=== PATIENT | male | born 1975 | race Caucasian/White ===

== ENCOUNTER 2018-04-24 01:18 | Inpatient (IN) | payer MEDICAID ==
[2018-04-24 01:19] VITALS: BMI 21.4
--- NOTE | 2018-04-24 02:37 | ED PDOC ---
HPI: General Adult Chief Complaint (Provider): rectal pain History Per: Patient History/Exam Limitations: no limitations Onset/Duration Of Symptoms: Days (1 week) Current Symptoms Are (Timing): Still Present Additional Complaint(s): 43 y/o male presents for evaluation of rectal pain x 1 week, worsening in the last few days. Patient states he was told by his primary doctor he had a hemorrhoid and was prescribed hydrocortisone cream and naproxen. Patient then came to the ED 4 days ago for same and was prescribed Percocet, colace, and lidocaine jelly. Patient reports no improvement of pain, and presents to ED [facility] for [facility]. Associated intermittent chills, constipation. Denies fever, nausea/vomiting, abdominal pain, urinary symptoms. <Mallroy New - Last Filed: 04/24/18 05:52> <Jose Carlos Frederick - Last Filed: 04/26/18 21:04> Time Seen by Provider: 04/24/18 02:20 Chief Complaint (Nursing): GI Problem Supervising Attending Note - Attestation: I have personally seen and examined this patient.: Yes I have fully participated in the care of the patient.: Yes I have reviewed all pertinent clinical information, including history, physical exam and plan: Yes <Jose Carlos Frederick - Last Filed: 04/26/18 21:04> Past Medical History Reviewed: Historical Data, Nursing Documentation, Vital Signs Vital Signs: Last Vital Signs Temp 98.4 F 04/24/18 01:52 Pulse 102 H 04/24/18 01:52 Resp 18 04/24/18 01:52 BP 119/76 04/24/18 01:52 Pulse Ox 99 04/24/18 01:52 - Medical History PMH: Anemia - Surgical History Surgical History: No Surg Hx - Family History Family History: States: No Known Family Hx - Immunization History Hx Tetanus Toxoid Vaccination: No Hx Influenza Vaccination: No Hx Pneumococcal Vaccination: No <Mallory New - Last Filed: 04/24/18 05:52> Vital Signs: Last Vital Signs Temp 97.5 F L 04/26/18 15:59 Pulse 55 L 04/26/18 15:59 Resp 18 04/26/18 15:59 BP 115/69 04/26/18 15:59 Pulse Ox 100 04/26/18 15:59 <Jose Carlos Frederick - Last Filed: 04/26/18 21:04> - Home Medications Home Medications: Ambulatory Orders Medication Instructions Recorded RX: No Known Home Med 04/24/18 - Allergies Allergies/Adverse Reactions: Allergies Allergy/AdvReac Type Severity Reaction Status Date / Time No Known Allergies Allergy Verified 04/24/18 01:52 Review of Systems ROS Statement: Except As Marked, All Systems Reviewed And Found Negative Gastrointestinal: Positive for: Rectal Pain <Mallory New - Last Filed: 04/24/18 05:52> Physical Exam - Reviewed Nursing Documentation Reviewed: Yes Vital Signs Reviewed: Yes - Physical Exam Appears: Positive for: Well, Non-toxic, No Acute Distress Head Exam: Positive for: ATRAUMATIC, NORMAL INSPECTION, NORMOCEPHALIC Skin: Positive for: Normal Color Eye Exam: Positive for: Normal appearance ENT: Positive for: Normal ENT Inspection Cardiovascular/Chest: Positive for: Regular Rate, Rhythm Respiratory: Positive for: Normal Breath Sounds Gastrointestinal/Abdominal: Positive for: Normal Exam Rectal: Positive for: Hemorrhoids (6:00 position), Other (+ large fluctuant erythematous mass right laverne-rectal area, tender to palpate. 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 Infectious and inflammatory etiologies are considered. Consider consultation with GI service and follow up with endoscopy and colonoscopy Call placed to [facility] by Dr. Frederick for clarification on CT read Patient evaluated by Dr. Diaz, surgical services manager on-call; will admit and plan for OR for thorough I&D. Advised NPO, abx IV zosyn ordered. IVF ordered <Mallory New - Last Filed: 04/24/18 05:52> - Laboratory Results Result Diagrams: 04/26/18 07:51 04/24/18 02:50 <Jose Carlos Frederick - Last Filed: 04/26/18 21:04> Disposition - Patient ED Disposition Is Patient to be Admitted: Yes - Disposition Disposition Time: 05:55 <Mallory New - Last Filed: 04/24/18 05:52> <Jose Carlos Frederick - Last Filed: 04/26/18 21:04> - Clinical Impression Clinical Impression: Perirectal abscess - Disposition Condition: STABLE
[2018-04-24 02:58] LABS: BASO % 0.2 % (0.0-2.0); EOS % 0.2 % (0.0-4.0); HEMOGLOBIN 13.3 g/dL (12.0-18.0); LYMPH # 1.4 K/uL (1.0-4.3); LYMPH % 6.4 % (20.0-40.0); MEAN CELL VOLUME 81.1 fl (80.0-94.0); MEAN CORPUSCULAR HEMOGLOBIN 27.5 pg (27.0-31.0); MEAN CORPUSCULAR HGB CONC 33.8 g/dL (33.0-37.0); MEAN PLATELET VOLUME 7.7 fl (7.2-11.7); MONO # 2.3 K/uL (0.0-0.8); MONO % 10.6 % (0.0-10.0); NEUT # 17.5 K/uL (1.8-7.0); NEUT % 82.6 % (50.0-75.0); PLATELET COUNT 301 K/uL (130-400); RBC 4.84 Mil/uL (4.40-5.90); RED CELL DISTRIBUTION WIDTH 17.7 % (11.5-14.5); WHITE BLOOD COUNT 21.2 K/uL (4.8-10.8)
[2018-04-24 03:08] LABS: ALBUMIN 4.4 g/dL (3.5-5.0); ALT/SGPT 39 U/L (21-72); AST/SGOT 33 U/L (17-59); BLOOD UREA NITROGEN 15 mg/dl (9-20); CALCIUM 9.5 mg/dL (8.4-10.2); GFR NON-AFRICAN AMERICAN > 60
[2018-04-24] MEDS ORDERED: Iohexol 300 100 ML IJ ONE (03:11)
[2018-04-24] MEDS ORDERED: Sodium Chloride 0.9% 50 ML IV ONE (03:12)
[2018-04-24 03:56] LABS: BANDS 4 % (0-2); LYMPHOCYTE 6 % (20-50); MONOCYTE 5 % (0-10); NEUTROPHIL 83 % (42-75); PLATELET ESTIMATE NORMAL (NORMAL); REACTIVE LYMPHOCYTES 2 % (0-0); TOTAL CELLS COUNTED 100
[2018-04-24 03:57] LABS: ANISOCYTOSIS SLIGHT; LARGE PLATELETS PRESENT; OVALOCYTES SLIGHT
[2018-04-24 04:44] LABS: URINE BILIRUBIN NEGATIVE (NEGATIVE); URINE BLOOD SMALL (NEGATIVE); URINE CLARITY SLIGHTY-CLOUDY (Clear); URINE COLOR YELLOW (YELLOW); URINE GLUCOSE (UA) NEG (Normal); URINE LEUKOCYTE ESTERASE NEG Leu/uL (Negative); URINE PROTEIN 30 mg/dL (NEGATIVE); URINE UROBILINOGEN 0.2-1.0 mg/dL (0.2-1.0)
[2018-04-24] MEDS ORDERED: Piperacillin/Tazobact 3.375 GM in Sodium Chloride 0.9% 100 ML IVPB STA (05:49)
[2018-04-24] MEDS ORDERED: Sodium Chloride 0.9% 1,000 ML IV SCH (06:00)
[2018-04-24] MEDS ORDERED: Piperacillin/Tazobact 3.375 gm Inj IVPB ONE (06:03)
--- NOTE | 2018-04-24 06:05 | CP.PCM.HP ---
History of Present Illness - History of Present Illness History of Present Illness: General Surgery H&P CC: Perianal pain HPI: 43M presents complaining of rectal pain and no bowel movement x 6 days, pain worsening in the last few days. Initially, his PMDtold him he had hemorrhoids and was prescribed hydrocortisone cream and naproxen. Patient then came to the ED on the for the same pain and was prescribed Percocet, colace, and lidocaine jelly. Pain continued to worsen since that ED visit. + subjective fever, night sweats, intermittent chills, constipation. Denies rectal drainage, nausea/vomiting, chest pain, SOB, abdominal pain, urinary symptoms. Never had colonoscopy. PMH: hx of rectal bleeding x 20y PSH: Knee surgery FH: noncontributory, mother has "Intestine problems" SH: Occasional Tobacco, EtOH, and THC use All: NKDA Meds: No daily meds Present on Admission - Present on Admission Any Indicators Present on Admission: No Review of Systems - Review of Systems All systems: reviewed and no additional remarkable complaints except (as per HPI) Past Patient History - Past Social History Smoking Status: Never Smoked - HEMATOLOGICAL/ONCOLOGICAL Hx Anemia: Yes - GASTROINTESTINAL Hx Constipation: Yes - PSYCHIATRIC Hx Substance Use: No - SURGICAL HISTORY Hx Surgeries: Yes Hx Orthopedic Surgery: Yes - ANESTHESIA Hx Anesthesia: Yes Meds Allergies/Adverse Reactions: Allergies Allergy/AdvReac Type Severity Reaction Status Date / Time No Known Allergies Allergy Verified 04/24/18 01:52 Physical Exam - Constitutional Appears: Non-toxic, No Acute Distress - Head Exam Head Exam: ATRAUMATIC, NORMOCEPHALIC - Eye Exam Eye Exam: EOMI. absent: Scleral icterus - ENT Exam ENT Exam: Mucous Membranes Moist Additional comments: trachea midline - Neck Exam Neck exam: Positive for: Full Rom. Negative for: Tenderness - Respiratory Exam Respiratory Exam: NORMAL BREATHING PATTERN. absent: Respiratory Distress - Cardiovascular Exam Cardiovascular Exam: Tachycardia (mild), +S1, +S2 - GI/Abdominal Exam GI & Abdominal Exam: Soft. absent: Distended, Tenderness - Rectal Exam Rectal Exam: Deferred (RYAN refused), Hemorrhoids Additional comments: multiple areas of extremely tender perianal erythema, edema, and fluctuance B/L, no purulent drainage seen with this limited exam. Areas up to 7cm away from anus Appear to be hemorrhoids present as well No gross blood seen - Extremities Exam Extremities exam: Positive for: pedal pulses present. Negative for: calf ten derness, pedal edema - Back Exam Back exam: absent: CVA tenderness (L), CVA tenderness (R) - Neurological Exam Neurological exam: Alert, Oriented x3 - Skin Skin Exam: Dry, Warm Results - Vital Signs Recent Vital Signs: Last Vital Signs Temp 98.4 F 04/24/18 01:52 Pulse 102 H 04/24/18 01:52 Resp 18 04/24/18 01:52 BP 119/76 04/24/18 01:52 Pulse Ox 99 04/24/18 05:56 - Labs Result Diagrams: 04/24/18 02:50 04/24/18 02:50 Labs: Laboratory Results - last 24 hr 04/24/18 04/24/18 04/24/18 02:50 02:50 02:50 WBC 21.2 H RBC 4.84 Hgb 13.3 Hct 39.3 MCV 81.1 MCH 27.5 MCHC 33.8 RDW 17.7 H Plt Count 301 MPV 7.7 Neut % (Auto) 82.6 H Lymph % (Auto) 6.4 L Roberts % (Auto) 10.6 H Eos % (Auto) 0.2 Baso % (Auto) 0.2 Neut # (Auto) 17.5 H Lymph # (Auto) 1.4 Roberts # (Auto) 2.3 H Eos # (Auto) 0.0 Baso # (Auto) 0.0 Neutrophils % (Manual) 83 H Band Neutrophils % 4 H Lymphocytes % (Manual) 6 L Reactive Lymphs % 2 H Monocytes % (Manual) 5 Platelet Estimate Normal Large Platelets Present Anisocytosis (manual) Slight Ovalocytes Slight Sodium 136 Potassium 4.4 Chloride 98 Carbon Dioxide 26 Anion Gap 16 BUN 15 Creatinine 0.9 Est GFR ( Amer) > 60 Est GFR (Non-Af Amer) > 60 Random Glucose 110 Lactic Acid 1.3 Calcium 9.5 Total Bilirubin 0.5 AST 33 ALT 39 Alkaline Phosphatase 106 Total Protein 8.7 H Albumin 4.4 Globulin 4.3 H Albumin/Globulin Ratio 1.0 Urine Color Urine Clarity Urine pH Ur Specific [place] Urine Protein Urine Glucose (UA) Urine Ketones Urine Blood Urine Nitrate Urine Bilirubin Urine Urobilinogen Ur Leukocyte Esterase Urine RBC (Auto) Urine Microscopic WBC 04/24/18 04:39 WBC RBC Hgb Hct MCV MCH MCHC RDW Plt Count MPV Neut % (Auto) Lymph % (Auto) Roberts % (Auto) Eos % (Auto) Baso % (Auto) Neut # (Auto) Lymph # (Auto) Roberts # (Auto) Eos # (Auto) Baso # (Auto) Neutrophils % (Manual) Band Neutrophils % Lymphocytes % (Manual) Reactive Lymphs % Monocytes % (Manual) Platelet Estimate Large Platelets Anisocytosis (manual) Ovalocytes Sodium Potassium Chloride Carbon Dioxide Anion Gap BUN Creatinine Est GFR ( Amer) Est GFR (Non-Af Amer) Random Glucose Lactic Acid Calcium Total Bilirubin AST ALT Alkaline Phosphatase Total Protein Albumin Globulin Albumin/Globulin Ratio Urine Color Yellow Urine Clarity Slighty-cloudy Urine pH 6.0 Ur Specific [place] 1.030 Urine Protein 30 Urine Glucose (UA) Neg Urine Ketones Trace Urine Blood Small Urine Nitrate Negative Urine Bilirubin Negative Urine Urobilinogen 0.2-1.0 Ur Leukocyte Esterase Neg Urine RBC (Auto) 2 Urine Microscopic WBC 2 - Imaging and Cardiology CT scan - pelvis Status: Image reviewed by me, Report reviewed by me Assessment & Plan - Assessment and Plan (Free Text) Assessment: 43M with extensive perirectal abscess Plan: F/U official CT read NPO IVF Analgesia Zofran Zosyn Plan for OR today Will D/W Dr. Ruslan Diaz PGY4
[2018-04-24 06:51] LABS: INR 1.5; PROTHROMBIN TIME 16.6 Seconds (9.8-13.1)
[2018-04-24 06:54] LABS: PARTIAL THROMBOPLASTIN TIME 68.8 Seconds (25.6-37.1)
[2018-04-24] MEDS: Piperacillin/Tazobact 3.375 GM in Sodium Chloride 0.9% 100 ML IVPB SCH ×3 (09:13→22:32)
[2018-04-24] MEDS ORDERED: Propofol 10 mg/ml Inj (20 ML) ONE (09:29)
[2018-04-24] MEDS ORDERED: Midazolam 2 MG/2 ML VIAL ONE (09:31)
--- NOTE | 2018-04-24 10:26 | CT ---
Date of service: 04/24/2018 PROCEDURE: CT Abdomen and Pelvis with contrast HISTORY: rectal pain COMPARISON: None. TECHNIQUE: Contrast dose: 90 mL Omnipaque 300 Radiation dose: Total exam DLP = 284.4 mGy-cm. This CT exam was performed using one or more of the following dose reduction techniques: Automated exposure control, adjustment of the mA and/or kV according to patient size, and/or use of iterative reconstruction technique. FINDINGS: LOWER THORAX: Unremarkable. LIVER: Unremarkable. No gross lesion or ductal dilatation. GALLBLADDER AND BILE DUCTS: Unremarkable. PANCREAS: Unremarkable. No gross lesion or ductal dilatation. SPLEEN: Unremarkable. ADRENALS: Unremarkable. No mass. KIDNEYS AND URETERS: Unremarkable. No hydronephrosis. No solid mass. VASCULATURE: Unremarkable. No aortic aneurysm. BOWEL: Perirectal abscess measuring 5.7 x 7.0 cm with reactive mild rectal wall thickening. No obstruction. No gross mural thickening. APPENDIX: Normal appendix. PERITONEUM: Unremarkable. No free fluid. No free air. LYMPH NODES: Unremarkable. No enlarged lymph nodes. BLADDER: Unremarkable. REPRODUCTIVE: Unremarkable. BONES: No acute fracture. OTHER FINDINGS: None. IMPRESSION: Perirectal abscess measuring 7.0 x 5.7 cm with reactive mild rectal wall thickening. The findings are discordant with preliminary report provided by the overnight tele radiology service. At the time of this dictation, per the electronic medical record, the surgical team already had high suspicion of perirectal abscess and has the patient is scheduled for a procedure in the operating room today.
[2018-04-24] MEDS ORDERED: Dexamethasone 4 mg/1 ml ONE (10:32)
[2018-04-24] MEDS ORDERED: Lactated Ringer's 1,000 ML IV ONE (10:45)
--- NOTE | 2018-04-24 11:05 | PCM.SURG1 ---
Surgeon's Initial Post Op Note - Surgeon's Notes Surgeon: Dr. Mercer Learning Analyst: Ginger PGY2 Type of Anesthesia: General LMA Anesthesia Administered By: Dr. Chapito Santiago Pre-Operative Diagnosis: Nasima-rectal abscess Operative Findings: Nasima-rectal abscess Post-Operative Diagnosis: Nasima-rectal abscess Operation Performed: Incision & Drainage of Nasima-rectal abscess Specimen/Specimens Removed: wound culture Estimated Blood Loss: EBL {In ML}: 10 Blood Products Given: N/A Drains Used: [place] (x 2 ) Post-Op Condition: Good Date of Surgery/Procedure: 04/24/18 Time of Surgery/Procedure: 11:05
[2018-04-24] MEDS ORDERED: DiphenhydrAMINE 50 mg/ml Inj IVP PRN (11:08)
[2018-04-24] MEDS: HYDROmorphone 0.5 mg/0.5 ml ISec IVP PRN ×2 (11:22→11:38)
[2018-04-24] MEDS: Lactated Ringer's 1,000 ML IV SCH (13:47)
--- NOTE | 2018-04-24 14:36 | CARD ---
APPROVED REPORT Date of service: 04/24/2018 EKG Measurement Heart [id number] <Conclusion> Normal sinus rhythm Normal ECG
--- NOTE | 2018-04-24 21:53 | OP ---
PROCEDURE DATE: 04/24/2018 PREOPERATIVE DIAGNOSIS: Left perirectal abscess. POSTOPERATIVE DIAGNOSIS: Left perirectal abscess. OPERATIVE FINDINGS: Perirectal abscess. OPERATION PERFORMED: Incision and drainage of left perirectal abscess. SURGEON: Redd Mercer MD HANDWRITING EXPERT: Gerardo Miles, PGY-2. ANESTHESIOLOGIST: Chapito Santiago MD ANESTHESIA: General LMA. SPECIMEN: Wound culture. ESTIMATED BLOOD LOSS: 10 mL. DRAINS: Two [place]'s. COMPLICATIONS: None. DESCRIPTION: The patient was taken to the OR and placed in lithotomy position on the operating table. General LMA anesthesia was administered. The patient was prepped and draped in the usual fashion. The area of the left gluteal was exposed and a rectal exam was performed. There was no bulging or papillae felt in the left wall of the rectum. Skin tags were noted in the superior and inferior portion of the anus. A bulge of the left medial gluteal region and right inferior medial gluteal region were present. An incision was made with a #11 blade on the left gluteal region where the fluctuation was the greatest. A Tameka was then used to explore the room and open up any pockets of pus. Approximately 30 mL of pus was drained from that left side. Undermining was noted superiorly, inferiorly and medially. The medial undermining crossed over the midline to the right side connecting the two areas of fluctuation. Pus was expressed from the right medial gluteal area as well. A [place] drain was inserted in the original incision to the left and crossed over the midline and then another incision was made with a #11 blade to make a cut in the skin and the Lauryn was used as a draining seton. A second [place] drain was placed on the left side from the original left medial gluteal incision and directed inferiorly and another gina was made in the skin with #11 blade and a [place] drain was used as a draining seton as well there. The two Lauryn drains were secured with a single silk suture. Irrigation was used with bulb syringe. The cavities were explored again. A 4 x 4 and abdominal pad dressing was applied to the surgical site. Blood loss was approximately 10 mL. There were no complications. The patient tolerated the procedure well and was transferred to the PACU in stable condition. All counts were correct and confirmed by nursing. Gerardo Miles DO Redd Mercer MD [facility] # [id number] TESS
[2018-04-25] MEDS: Lactated Ringer's 1,000 ML IV SCH ×2 (04:41→20:24)
[2018-04-25] MEDS: Piperacillin/Tazobact 3.375 GM in Sodium Chloride 0.9% 100 ML IVPB SCH ×5 (04:42→21:39)
[2018-04-25 06:40] LABS: BASO % 0.1 % (0.0-2.0); HEMOGLOBIN 11.8 g/dL (12.0-18.0); LYMPH # 0.6 K/uL (1.0-4.3); LYMPH % 2.9 % (20.0-40.0); MEAN CELL VOLUME 82.3 fl (80.0-94.0); MEAN CORPUSCULAR HEMOGLOBIN 27.1 pg (27.0-31.0); MEAN PLATELET VOLUME 7.9 fl (7.2-11.7); MONO # 0.7 K/uL (0.0-0.8); MONO % 3.3 % (0.0-10.0); NEUT % 93.7 % (50.0-75.0); PLATELET COUNT 270 K/uL (130-400); RBC 4.33 Mil/uL (4.40-5.90); WHITE BLOOD COUNT 21.3 K/uL (4.8-10.8)
[2018-04-25 09:03] LABS: BANDS 6 % (0-2); LYMPHOCYTE 5 % (20-50); METAMYELOCYTE 1 % (0-0); MONOCYTE 3 % (0-10); NEUTROPHIL 85 % (42-75); TOTAL CELLS COUNTED 100
[2018-04-25 09:04] LABS: LARGE PLATELETS PRESENT; OVALOCYTES SLIGHT; PLATELET ESTIMATE NORMAL (NORMAL)
--- NOTE | 2018-04-25 09:42 | CP.PCM.PN ---
Subjective - Date & Time of Evaluation Date of Evaluation: 04/25/18 Time of Evaluation: 07:20 - Subjective Subjective: General Surgery Pt Seen and examined. No issues overnight. Pain improving, afebrile. Complaining of R shoulder pain, has been repetitively struck against furniture while moving over the last 6 days, says he feels like it is grinding. Objective - Vital Signs/Intake and Output Vital Signs (last 24 hours): Temp Pulse Resp BP Pulse Ox 98.2 F 75 20 103/63 99 04/25/18 08:27 04/25/18 08:27 04/25/18 08:27 04/25/18 08:27 04/25/18 08:27 - Medications Medications: Current Medications Acetaminophen (Tylenol 325mg Tab) 650 mg PO Q6 PRN PRN Reason: Fever >100.4 F Piperacillin Sod/Tazobactam (Sod 3.375 gm/ Sodium Chloride) 100 mls @ 100 mls/hr IVPB Q6 BRI; Protocol Last Admin: 04/25/18 04:42 Dose: 100 mls/hr Vancomycin HCl 1 gm/ Sodium (Chloride) 250 mls @ 166.667 mls/hr IVPB Q12H BRI; Protocol Last Admin: 04/24/18 23:52 Dose: 166.667 mls/hr Lactated Ringer's (Lactated Ringer's) 1,000 mls @ 125 mls/hr IV .Q8H BRI Last Admin: 04/25/18 04:41 Dose: Not Given Ketorolac Tromethamine (Toradol) 30 mg IVP Q6 PRN PRN Reason: Pain, moderate (4-7) Last Admin: 04/25/18 09:14 Dose: 30 mg Meperidine HCl (Demerol) 12.5 mg IVP Q5M PRN PRN Reason: Shivering/Rigor Morphine Sulfate (Morphine) 4 mg IVP Q4 PRN PRN Reason: Pain, moderate (4-7) Ondansetron HCl (Zofran Inj) 4 mg IVP Q4 PRN PRN Reason: Nausea/Vomiting Oxycodone/Acetaminophen (Percocet 5/325 Mg Tab) 1 tab PO Q4 PRN PRN Reason: Pain, moderate (4-7) Stop: 04/27/18 11:10 - Labs Labs: 04/25/18 06:05 04/24/18 02:50 PT 16.6 Seconds (9.8-13.1) H 04/24/18 06:20 INR 1.5 04/24/18 06:20 APTT 68.8 Seconds (25.6-37.1) H 04/24/18 06:20 - Constitutional Appears: Non-toxic, No Acute Distress - Head Exam Head Exam: ATRAUMATIC, NORMOCEPHALIC - Eye Exam Eye Exam: EOMI. absent: Scleral icterus - Respiratory Exam Respiratory Exam: NORMAL BREATHING PATTERN. absent: Respiratory Distress - Cardiovascular Exam Cardiovascular Exam: RRR, +S1, +S2 - GI/Abdominal Exam GI & Abdominal Exam: Soft. absent: Distended, Tenderness - Rectal Exam Additional comments: dressing with bloody staining, isiah drains in place - Extremities Exam Extremities Exam: absent: Calf Tenderness Additional comments: pain with movement of R shoulder - Neurological Exam Neurological Exam: Alert, Awake, Oriented x3 - Skin Skin Exam: Dry, Warm Assessment and Plan - Assessment and Plan (Free Text) Assessment: 43M S/P Incision & Drainage of Nasima-rectal abscess POD #1 Plan: Continue Abx Change Dressing PRN Shoulder XR ordered for eval Monitor Swelling D/W Dr. Ruslan Diaz PGY4
--- NOTE | 2018-04-25 10:37 | RAD ---
Date of service: 04/25/2018 PROCEDURE: Radiographs of the Right Shoulder HISTORY: shoulder pain COMPARISON: No prior. FINDINGS: BONES: Normal. No fracture. JOINTS: Osteoarthritis of the glenohumeral articulation with marginal hypertrophy and joint space narrowing and subchondral sclerosis. Normal acromioclavicular articulation. SOFT TISSUES: Normal. OTHER FINDINGS: None. IMPRESSION: Glenohumeral osteoarthritis
[2018-04-25] MEDS: Oxycodone/Acetaminophen 5/325 mg Tab PO PRN (19:00)
[2018-04-26] MEDS: Oxycodone/Acetaminophen 5/325 mg Tab PO PRN ×3 (01:35→14:33)
[2018-04-26] MEDS: Piperacillin/Tazobact 3.375 GM in Sodium Chloride 0.9% 100 ML IVPB SCH ×4 (03:56→21:59)
[2018-04-26] MEDS: Lactated Ringer's 1,000 ML IV SCH (03:56)
[2018-04-26 08:25] LABS: BASO % 0.2 % (0.0-2.0); EOS # 0.4 K/uL (0.0-0.7); EOS % 2.8 % (0.0-4.0); HEMOGLOBIN 11.1 g/dL (12.0-18.0); LYMPH # 3.3 K/uL (1.0-4.3); LYMPH % 25.5 % (20.0-40.0); MEAN CELL VOLUME 77.8 fl (80.0-94.0); MEAN CORPUSCULAR HEMOGLOBIN 24.9 pg (27.0-31.0); MONO # 0.8 K/uL (0.0-0.8); MONO % 6.5 % (0.0-10.0); NEUT # 8.3 K/uL (1.8-7.0); NRBC % 0.2 % (0.0-0.0); RBC 4.46 Mil/uL (4.40-5.90); RED CELL DISTRIBUTION WIDTH 15.9 % (11.5-14.5); WHITE BLOOD COUNT 12.8 K/uL (4.8-10.8)
--- NOTE | 2018-04-26 09:53 | CP.PCM.PN ---
Subjective - Date & Time of Evaluation Date of Evaluation: 04/26/18 Time of Evaluation: 07:00 - Subjective Subjective: GENERAL SURGERY PROGRESS NOTE FOR DR. WRIGHT Patient seen and examined at bedside. He reports improved pain. He is ambulating, going to the bathroom and tolerating his diet. Patient prefers to stay in hospital one more day. Objective - Vital Signs/Intake and Output Vital Signs (last 24 hours): Temp Pulse Resp BP Pulse Ox 97.8 F 56 L 20 132/82 96 04/26/18 07:43 04/26/18 07:43 04/26/18 07:43 04/26/18 07:43 04/26/18 07:43 - Medications Medications: Current Medications Acetaminophen (Tylenol 325mg Tab) 650 mg PO Q6 PRN PRN Reason: Fever >100.4 F Piperacillin Sod/Tazobactam (Sod 3.375 gm/ Sodium Chloride) 100 mls @ 100 mls/hr IVPB Q6 BRI; Protocol Last Admin: 04/26/18 09:13 Dose: 100 mls/hr Ketorolac Tromethamine (Toradol) 30 mg IVP Q6 PRN PRN Reason: Pain, moderate (4-7) Last Admin: 04/25/18 09:14 Dose: 30 mg Ondansetron HCl (Zofran Inj) 4 mg IVP Q4 PRN PRN Reason: Nausea/Vomiting Oxycodone/Acetaminophen (Percocet 5/325 Mg Tab) 1 tab PO Q4 PRN PRN Reason: Pain, moderate (4-7) Stop: 04/27/18 11:10 Last Admin: 04/26/18 07:45 Dose: 1 tab - Labs Labs: 04/26/18 07:51 04/24/18 02:50 PT 16.6 Seconds (9.8-13.1) H 04/24/18 06:20 INR 1.5 04/24/18 06:20 APTT 68.8 Seconds (25.6-37.1) H 04/24/18 06:20 - Constitutional Appears: Well, Non-toxic, No Acute Distress - Head Exam Head Exam: ATRAUMATIC, NORMAL INSPECTION - Respiratory Exam Respiratory Exam: NORMAL BREATHING PATTERN. absent: Respiratory Distress - Cardiovascular Exam Cardiovascular Exam: +S1, +S2 - GI/Abdominal Exam GI & Abdominal Exam: Soft. absent: Distended, Tenderness - Rectal Exam Additional comments: [place] drains in place, some drainage noted on dressing - Neurological Exam Neurological Exam: Alert, Awake, Oriented x3 - Psychiatric Exam Psychiatric exam: Normal Affect, Normal Mood - Skin Skin Exam: Dry, Normal Color, Warm Assessment and Plan - Assessment and Plan (Free Text) Assessment: 43M S/P Incision & Drainage of Nasima-rectal abscess POD #2 Cx returned from OR: E. Coli, hansen sensitive WBC improved from 21.3 to 12.8 Plan: - Vanco discontinued - Continue Zosyn for E. Coli - Change Dressing PRN - Likely DC home tomorrow, will remove 1 isiah prior to DC, 2nd isiah to be removed by Dr. Wright in his office on - Discussed plan with Dr. Ruslan Rosario PGY-4
[2018-04-27] MEDS: Oxycodone/Acetaminophen 5/325 mg Tab PO PRN ×2 (00:46→09:07)
[2018-04-27] MEDS: Piperacillin/Tazobact 3.375 GM in Sodium Chloride 0.9% 100 ML IVPB SCH ×2 (04:53→09:10)
[2018-04-27 08:43] VITALS: BP 111/74; PULSE 52; RESP 20; TEMP 97.6; O2SAT 97
[2018-04-27 10:47] LABS: BASO # 0.1 K/uL (0.0-0.2); BASO % 0.9 % (0.0-2.0); EOS # 0.3 K/uL (0.0-0.7); EOS % 3.7 % (0.0-4.0); HEMOGLOBIN 12.3 g/dL (12.0-18.0); LYMPH # 1.9 K/uL (1.0-4.3); LYMPH % 24.3 % (20.0-40.0); MEAN CELL VOLUME 81.1 fl (80.0-94.0); MEAN CORPUSCULAR HGB CONC 33.3 g/dL (33.0-37.0); MEAN PLATELET VOLUME 7.5 fl (7.2-11.7); MONO # 1.3 K/uL (0.0-0.8); NEUT # 4.4 K/uL (1.8-7.0); NEUT % 55.1 % (50.0-75.0); NRBC % 0.1 % (0.0-0.0); RBC 4.56 Mil/uL (4.40-5.90); RED CELL DISTRIBUTION WIDTH 17.7 % (11.5-14.5)
[2018-04-27] MEDS ORDERED: Oxycodone/Acetaminophen 5/325 mg Tab PO ONE (14:13)
--- NOTE | 2018-04-27 14:17 | CP.PCM.DIS ---
Provider - Provider Date of Admission: 04/24/18 05:50 Attending physician: Redd Mercer MD Time Spent in preparation of Discharge (in minutes): 30 Diagnosis - Discharge Diagnosis (1) Perirectal abscess Status: Resolved Priority: High Hospital Course - Lab Results Lab Results: Micro Results 04/24/18 04:35 Blood-Venous Blood Culture - Preliminary NO GROWTH AFTER 3 DAYS 04/24/18 03:11 Blood-Venous Blood Culture - Preliminary NO GROWTH AFTER 3 DAYS 04/24/18 12:30 Abscess - Perirectal Gram Stain - Final 04/24/18 12:30 Abscess - Perirectal Wound Culture - Final Escherichia Coli Beta Hemolytic Streptococcus A Most Recent Lab Values WBC 8.0 K/uL (4.8-10.8) 04/27/18 10:21 RBC 4.56 Mil/uL (4.40-5.90) 04/27/18 10:21 Hgb 12.3 g/dL (12.0-18.0) 04/27/18 10:21 Hct 37.0 % (35.0-51.0) 04/27/18 10:21 MCV 81.1 fl (80.0-94.0) D 04/27/18 10:21 MCH 27.0 pg (27.0-31.0) 04/27/18 10:21 MCHC 33.3 g/dL (33.0-37.0) 04/27/18 10:21 RDW 17.7 % (11.5-14.5) H 04/27/18 10:21 Plt Count 335 K/uL (130-400) 04/27/18 10:21 MPV 7.5 fl (7.2-11.7) 04/27/18 10:21 Neut % (Auto) 55.1 % (50.0-75.0) 04/27/18 10:21 Lymph % (Auto) 24.3 % (20.0-40.0) 04/27/18 10:21 [place] % (Auto) 16.0 % (0.0-10.0) H 04/27/18 10:21 Eos % (Auto) 3.7 % (0.0-4.0) 04/27/18 10:21 Baso % (Auto) 0.9 % (0.0-2.0) 04/27/18 10:21 Neut # (Auto) 4.4 K/uL (1.8-7.0) 04/27/18 10:21 Lymph # (Auto) 1.9 K/uL (1.0-4.3) 04/27/18 10:21 [place] # (Auto) 1.3 K/uL (0.0-0.8) H 04/27/18 10:21 Eos # (Auto) 0.3 K/uL (0.0-0.7) 04/27/18 10:21 Baso # (Auto) 0.1 K/uL (0.0-0.2) 04/27/18 10:21 Neutrophils % (Manual) 85 % (42-75) H 04/25/18 06:05 Band Neutrophils % 6 % (0-2) H 04/25/18 06:05 Lymphocytes % (Manual) 5 % (20-50) L 04/25/18 06:05 Reactive Lymphs % 2 % (0-0) H 04/24/18 02:50 Monocytes % (Manual) 3 % (0-10) 04/25/18 06:05 Metamyelocytes % 1 % (0-0) H 04/25/18 06:05 Platelet Estimate Normal (NORMAL) 04/25/18 06:05 Large Platelets Present 04/25/18 06:05 Anisocytosis (manual) Slight 04/24/18 02:50 Ovalocytes Slight 04/25/18 06:05 PT 16.6 Seconds (9.8-13.1) H 04/24/18 06:20 INR 1.5 04/24/18 06:20 APTT 68.8 Seconds (25.6-37.1) H 04/24/18 06:20 Sodium 136 mmol/l (132-148) 04/24/18 02:50 Potassium 4.4 MMOL/L (3.6-5.0) 04/24/18 02:50 Chloride 98 mmol/L (98-107) 04/24/18 02:50 Carbon Dioxide 26 mmol/L (22-30) 04/24/18 02:50 Anion Gap 16 (10-20) 04/24/18 02:50 BUN 15 mg/dl (9-20) 04/24/18 02:50 Creatinine 0.9 mg/dl (0.8-1.5) 04/24/18 02:50 Est GFR ( Amer) > 60 04/24/18 02:50 Est GFR (Non-Af Amer) > 60 04/24/18 02:50 Random Glucose 110 mg/dL (75-110) 04/24/18 02:50 Lactic Acid 1.3 MMOL/L (0.7-2.1) 04/24/18 02:50 Calcium 9.5 mg/dL (8.4-10.2) 04/24/18 02:50 Total Bilirubin 0.5 mg/dl (0.2-1.3) 04/24/18 02:50 AST 33 U/L (17-59) 04/24/18 02:50 ALT 39 U/L (21-72) 04/24/18 02:50 Alkaline Phosphatase 106 U/L (38-126) 04/24/18 02:50 Total Protein 8.7 G/DL (6.3-8.2) H 04/24/18 02:50 Albumin 4.4 g/dL (3.5-5.0) 04/24/18 02:50 Globulin 4.3 gm/dL (2.2-3.9) H 04/24/18 02:50 Albumin/Globulin Ratio 1.0 (1.0-2.1) 04/24/18 02:50 Urine Color Yellow (YELLOW) 04/24/18 04:39 Urine Clarity Slighty-cloudy (Clear) 04/24/18 04:39 Urine pH 6.0 (5.0-8.0) 04/24/18 04:39 Ur Specific [place] 1.030 (1.003-1.030) 04/24/18 04:39 Urine Protein 30 mg/dL (NEGATIVE) 04/24/18 04:39 Urine Glucose (UA) Neg mg/dL (Normal) 04/24/18 04:39 Urine Ketones Trace mg/dL (NEGATIVE) 04/24/18 04:39 Urine Blood Small (NEGATIVE) 04/24/18 04:39 Urine Nitrate Negative (NEGATIVE) 04/24/18 04:39 Urine Bilirubin Negative (NEGATIVE) 04/24/18 04:39 Urine Urobilinogen 0.2-1.0 mg/dL (0.2-1.0) 04/24/18 04:39 Ur Leukocyte Esterase Neg Maggy/uL (Negative) 04/24/18 04:39 Urine RBC (Auto) 2 /hpf (0-3) 04/24/18 04:39 Urine Microscopic WBC 2 /hpf (0-5) 04/24/18 04:39 Blood Type O POSITIVE 04/24/18 05:57 Blood Type Confirm O POSITIVE 04/24/18 06:55 Antibody Screen Negative 04/24/18 05:57 BBK History Checked No verified bt 04/24/18 05:57 - Hospital Course Hospital Course: 43M presented complaining of rectal pain and no bowel movement x 6 days, pain worsening in the last few days. Initially, his PMD told him he had hemorrhoids and was prescribed hydrocortisone cream and naproxen. Patient then came to the ED on the for the same pain and was prescribed Percocet, colace, and lidocaine jelly. Pain continued to worsen since that ED visit. He was admitted and went to the OR for I&D of his perirectal abscess. Post op he improved and his WBC slowly came down until he was cleared for DC. Discharge Exam - Head Exam Head Exam: ATRAUMATIC, NORMAL INSPECTION - Eye Exam Eye Exam: EOMI. absent: Scleral icterus - Respiratory Exam Respiratory Exam: NORMAL BREATHING PATTERN. absent: Respiratory Distress - Cardiovascular Exam Cardiovascular Exam: RRR, +S1, +S2 - GI/Abdominal Exam GI & Abdominal Exam: Soft. absent: Distended, Tenderness - Rectal Exam Additional comments: incisions granulating, some serosanguinous drainage, [address] - Extremities Exam Extremities exam: normal capillary refill, pedal pulses present - Neurological Exam Neurological exam: Alert, Oriented x3 - Skin Skin Exam: Dry, Warm Discharge Plan - Discharge Medications Prescriptions: Amoxicillin/Potassium Clav [Amox-Clav 875-125 mg Tablet] 1 each PO Q12H 10 Days #20 tablet - Follow Up Plan Condition: STABLE Disposition: HOME/ ROUTINE Instructions: Abscess (GEN) Additional Instructions: Follow up with Dr. Mercer in office for drain removal in 2-5 days Call for fever more than 101 or pain uncontrolled by medications Ok to shower, clean area with soap and water. No baths. Regular diet, can take fiber supplement/prune juice to keep bowel movements soft. Referrals: Redd Mercer MD [Staff Provider] -
== END 2018-04-27 16:35 | disposition home or self-care (01) | DRG 149 ==
LOC: H.ER 01:18 → H.ERHOLD 05:50 → H.MEDSURG1 08:49
PROVIDERS: ADMIT Surgery; ATTEND Surgery
PROC: 0D9P30Z Drainage of Rectum with Drainage Device, Percutaneous Approach (ICD-10-PCS; principal; 2018-04-24 09:30)
DX: K61.1 Rectal abscess (principal); K59.00 Constipation, unspecified; B96.20 Unspecified Escherichia coli [E. coli] as the cause of diseases classified elsewhere; K64.4 Residual hemorrhoidal skin tags

== ENCOUNTER 2018-06-18 23:15 | Emergency (ER) | payer MEDICAID, OTHER ==
[2018-06-18 23:15] VITALS: BMI 21.4
[2018-06-18 23:52] VITALS: TEMP 97.5; O2SAT 100
--- NOTE | 2018-06-19 00:17 | ED PDOC ---
HPI: General Adult Chief Complaint (Provider): rectal pain History Per: Patient History/Exam Limitations: no limitations Onset/Duration Of Symptoms: Days (1 week), Waxing/Waning Current Symptoms Are (Timing): Still Present Additional Complaint(s): 43 y/o male presents for evaluation of laverne-rectal pain x 1 week. Patient has a history of laverne-rectal abscess; states it felt similar so was seen by his primary doctor last week and prescribed Bactrim DS. Patient states he finished the antibiotics and still noticed discomfort so he came to the ED. Denies fever, nausea/vomiting, abdominal pain, changes in bowel movements, urinary symptoms. <Mallory Casanova - Last Filed: 06/19/18 05:05> <Jose Carlos Frederick - Last Filed: 06/19/18 06:55> Time Seen by Provider: 06/19/18 00:00 Chief Complaint (Nursing): Abnormal Skin Integrity Past Medical History Reviewed: Historical Data, Nursing Documentation, Vital Signs Vital Signs: Last Vital Signs Temp 97.5 F L 06/18/18 23:49 Pulse 71 06/18/18 23:49 Resp 16 06/18/18 23:49 BP 114/67 06/18/18 23:49 Pulse Ox 100 06/18/18 23:49 - Medical History PMH: Anemia Denies: HIV - Family History Family History: States: No Known Family Hx - Immunization History Hx Tetanus Toxoid Vaccination: No Hx Influenza Vaccination: No Hx Pneumococcal Vaccination: No <Mallory Casanova - Last Filed: 06/19/18 05:05> Vital Signs: Last Vital Signs Temp 97.5 F L 06/19/18 06:04 Pulse 55 L 06/19/18 06:04 Resp 18 06/19/18 06:04 BP 113/60 06/19/18 06:04 Pulse Ox 100 06/19/18 06:04 <Jose Carlos Frederick - Last Filed: 06/19/18 06:55> - Home Medications Home Medications: Ambulatory Orders Medication Instructions Recorded No Known Home Med 06/19/18 - Allergies Allergies/Adverse Reactions: Allergies Allergy/AdvReac Type Severity Reaction Status Date / Time No Known Allergies Allergy Verified 06/05/18 19:50 Review of Systems ROS Statement: Except As Marked, All Systems Reviewed And Found Negative Gastrointestinal: Positive for: Rectal Pain <Mallory Casanova - Last Filed: 06/19/18 05:05> Physical Exam - Reviewed Nursing Documentation Reviewed: Yes Vital Signs Reviewed: Yes - Physical Exam Appears: Positive for: Well, Non-toxic, No Acute Distress Head Exam: Positive for: ATRAUMATIC, NORMAL INSPECTION, NORMOCEPHALIC Skin: Positive for: Normal Color Eye Exam: Positive for: Normal appearance ENT: Positive for: Normal ENT Inspection Cardiovascular/Chest: Positive for: Regular Rate, Rhythm Respiratory: Positive for: Normal Breath Sounds Gastrointestinal/Abdominal: Positive for: Normal Exam Rectal: Positive for: Hemorrhoids (pink, nontender), Tenderness (left laverne- rectal region firm to touch; no fluctuance, drainage noted. ), Other (exam micropaleontologist Flory Lam RN) Extremity: Positive for: Normal ROM Neurologic/Psych: Positive for: Alert, Oriented (x3) <Mallory Casanova - Last Filed: 06/19/18 05:05> - Laboratory Results Result Diagrams: 06/19/18 00:44 06/19/18 00:44 - ECG O2 Sat by Pulse Oximetry: 100 - Progress ED Course And Treament: -cbc -cmp -CT abd/pelvis USArad CT impression: left perianal intersphincteric fistula measuring 4.2cm in its largest anteroposterior dimension Associated phlegmonous changes and gas densities within the tract of the fistula Surrounding cellulitis No drainable abscess formation Mildly prominent bilateral inguinal lymph nodes measuring 1.2cm Moderate constipation Patient evaluated by Dr. Lauren, residential glazier on-call; pending final dispo IV clinda dose ordered <Mallory Casanova - Last Filed: 06/19/18 05:05> - Laboratory Results Result Diagrams: 06/19/18 00:44 06/19/18 00:44 <Jose Carlos Frederick - Last Filed: 06/19/18 06:55> Medical Decision Making Medical Decision Makin Patient endorsed to Dr. Duncan pending surgery final evaluation. <Jose Carlos Frederick - Last Filed: 06/19/18 06:55> Disposition - Patient ED Disposition Is Patient to be Admitted: No - Disposition Disposition Time: 05:00 Patient Signed Over To: Jose Carlos Frederick Handoff Comments: pending final dispo <Mallory Casanova - Last Filed: 06/19/18 05:05> <Jose Carlos Frederick - Last Filed: 06/19/18 06:55> - Clinical Impression Clinical Impression: Perianal cellulitis, Perianal fistula - Disposition Condition: STABLE Forms: [facility] ([place])
[2018-06-19] MEDS ORDERED: Iohexol 240 (50 ml) PO ONE (00:20)
[2018-06-19] MEDS ORDERED: Iohexol 240 (50 ml) ONE (00:34)
[2018-06-19 00:47] LABS: BASO % 0.3 % (0.0-2.0); EOS # 0.3 K/uL (0.0-0.7); EOS % 4.6 % (0.0-4.0); HEMOGLOBIN 13.1 g/dL (12.0-18.0); LYMPH # 1.8 K/uL (1.0-4.3); LYMPH % 27.2 % (20.0-40.0); MEAN CELL VOLUME 83.1 fl (80.0-94.0); MEAN CORPUSCULAR HEMOGLOBIN 26.9 pg (27.0-31.0); MEAN CORPUSCULAR HGB CONC 32.4 g/dL (33.0-37.0); MEAN PLATELET VOLUME 7.7 fl (7.2-11.7); MONO # 0.8 K/uL (0.0-0.8); MONO % 11.9 % (0.0-10.0); NEUT # 3.7 K/uL (1.8-7.0); NRBC % 0.1 % (0.0-0.0); RBC 4.87 Mil/uL (4.40-5.90); RED CELL DISTRIBUTION WIDTH 16.9 % (11.5-14.5); WHITE BLOOD COUNT 6.5 K/uL (4.8-10.8)
[2018-06-19 00:56] LABS: ALB/GLOB RATIO 1.3 (1.0-2.1); ALBUMIN 4.3 g/dL (3.5-5.0); ALT/SGPT 68 U/L (21-72); AST/SGOT 38 U/L (17-59); BLOOD UREA NITROGEN 10 mg/dl (9-20); GFR NON-AFRICAN AMERICAN > 60
[2018-06-19] MEDS ORDERED: Iohexol 300 100 ML IJ ONE (01:59)
[2018-06-19] MEDS ORDERED: Sodium Chloride 0.9% 50 ML IV ONE (02:00)
[2018-06-19] MEDS ORDERED: Clindamycin 600mg/50ml D5W 600 MG/50 ML VIAL IVPB STA (04:53)
--- NOTE | 2018-06-19 05:08 | CP.PCM.CON ---
History of Present Illness - History of Present Illness History of Present Illness: General surgery consult note for Dr. Petty consulted for anorectal fistula Patient is a 43 yr old male with PMH hemorrhoids who presents with perirectal pain over the past 2 months since an I&D of a perirectal abscess. Patient states that the pain had always been present but that it had been persistent over the past week despite Bactrim prescribed by his PMD. He describes the pain as dull intermittent and 4/10. He denies any associated symptoms such as drainage, incontinence, pain with defecation, constipation, diarrhea, melena, blood in stool or purulent fluid in stool. He additionally denies CRUMP, cough, SOB, CP, abdominal pain, f/c, n/v and extremity pain or weakness. Of note patient has refused/ not required pain medication during his time in the ED. PMH: hemorrhoids PSH: rectal abscess I&D All: nkda Social: denies Review of Systems - Review of Systems All systems: reviewed and no additional remarkable complaints except (as per HPI) Past Patient History - Past Medical History & Family History Past Medical History?: No - Past Social History Smoking Status: occassiona - CARDIAC Hx Cardiac Disorders: No - HEMATOLOGICAL/ONCOLOGICAL Hx Anemia: Yes Hx Human Immunodeficiency Virus (HIV): No - MUSCULOSKELETAL/RHEUMATOLOGICAL Hx Falls: No - GASTROINTESTINAL Hx Constipation: Yes Other/Comment: perirectal abscess - PSYCHIATRIC Hx Substance Use: No - SURGICAL HISTORY Hx Surgeries: Yes Hx Orthopedic Surgery: Yes - ANESTHESIA Hx Anesthesia: Yes Hx Anesthesia Reactions: No Hx Malignant Hyperthermia: No Meds Allergies/Adverse Reactions: Allergies Allergy/AdvReac Type Severity Reaction Status Date / Time No Known Allergies Allergy Verified 06/05/18 19:50 - Medications Medications: Current Medications Clindamycin Phosphate (Cleocin) 600 mg in 50 mls @ 50 mls/hr IVPB STAT STA; Protocol Stop: 06/19/18 05:52 Physical Exam - Constitutional Appears: Well, Non-toxic, No Acute Distress - Head Exam Head Exam: ATRAUMATIC, NORMOCEPHALIC - Eye Exam Eye Exam: EOMI - ENT Exam ENT Exam: Mucous Membranes Moist - Respiratory Exam Respiratory Exam: NORMAL BREATHING PATTERN - Cardiovascular Exam Cardiovascular Exam: REGULAR RHYTHM - GI/Abdominal Exam GI & Abdominal Exam: Soft. absent: Distended, Guarding, Rigid, Tenderness - Rectal Exam Rectal Exam: Hemorrhoids Additional comments: palpable cord in the left gluteal cleft consistent with fistula seen on CT, mild discomfort with exam, good sphincter tone, no masses palpated, no fistula tract opening could be felt in the anal canal. no areas or fluctuance erythema or edema - Extremities Exam Extremities exam: Positive for: pedal pulses present. Negative for: calf tenderness, pedal edema - Neurological Exam Neurological exam: Alert, Oriented x3 Results - Vital Signs Recent Vital Signs: Last Vital Signs Temp 97.5 F L 06/18/18 23:49 Pulse 71 06/18/18 23:49 Resp 16 06/18/18 23:49 BP 114/67 06/18/18 23:49 Pulse Ox 100 06/19/18 04:23 - Labs Result Diagrams: 06/19/18 00:44 06/19/18 00:44 Labs: Laboratory Results - last 24 hr 06/19/18 06/19/18 00:44 00:44 WBC 6.5 RBC 4.87 Hgb 13.1 Hct 40.4 MCV 83.1 D MCH 26.9 L MCHC 32.4 L RDW 16.9 H Plt Count 260 MPV 7.7 Neut % (Auto) 56.0 Lymph % (Auto) 27.2 [place] % (Auto) 11.9 H Eos % (Auto) 4.6 H Baso % (Auto) 0.3 Neut # (Auto) 3.7 Lymph # (Auto) 1.8 [place] # (Auto) 0.8 Eos # (Auto) 0.3 Baso # (Auto) 0.0 Sodium 141 Potassium 4.2 Chloride 105 Carbon Dioxide 29 Anion Gap 11 BUN 10 Creatinine 0.8 Est GFR ( Amer) > 60 Est GFR (Non-Af Amer) > 60 Random Glucose 106 Calcium 9.0 Total Bilirubin 0.3 AST 38 ALT 68 Alkaline Phosphatase 67 Total Protein 7.6 Albumin 4.3 Globulin 3.3 Albumin/Globulin Ratio 1.3 Assessment & Plan - Assessment and Plan (Free Text) Assessment: 43 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 Ruslan Lauren, PGY 1 - Date & Time Date: 06/19/18 Time: 04:45
[2018-06-19 06:05] VITALS: BP 113/60; PULSE 55; RESP 18
--- NOTE | 2018-06-19 07:34 | ED PDOC ---
- Laboratory Results Result Diagrams: 06/19/18 00:44 06/19/18 00:44 - ECG O2 Sat by Pulse Oximetry: 100 - Progress Re-evaluation Time: 08:24 Condition: Unchanged (Evaluated by surgery, can be dc'ed home on PO Cipro with outpt f/u) Medical Decision Making Medical Decision Makin Case endorsed to me by Dr. Frederick pending final surgery evaluation. Scribe Attestation: Documented by Silvano Carmona, acting as a scribe for Vj Duncan MD. Provider Scribe Attestation: All medical record entries made by the Scribe were at my direction and personally dictated by me. I have reviewed the chart and agree that the record accurately reflects my personal performance of the history, physical exam, medical decision making, and the department course for this patient. I have also personally directed, reviewed, and agree with the discharge instructions and disposition. Disposition - Clinical Impression Clinical Impression: Perianal cellulitis, Perianal fistula - POA Present On Arrival: None - Disposition Referrals: Redd Mercer MD [Staff Provider] - Disposition: Routine/Home Disposition Time: 08:23 Condition: STABLE Prescriptions: Ciprofloxacin HCl [Cipro] 500 mg PO BID #20 tab Instructions: Cellulitis (Skin Infection), Adult (DC) Forms: [facility] (Scottish)
--- NOTE | 2018-06-19 09:14 | CT ---
Date of service: 06/19/2018 PROCEDURE: CT Abdomen and Pelvis with contrast HISTORY: Perirectal pain. COMPARISON: 04/24/2018. CT abdomen and pelvis. Summary of findings on the comparison examination: Perirectal abscess 5.7 x 7 cm with rectal wall thickening. TECHNIQUE: Intravenous contrast dose: Radiation dose: Total exam DLP = <inf_radiation_dlp> mGy-cm. This CT exam was performed using one or more of the following dose reduction techniques: Automated exposure control, adjustment of the mA and/or kV according to patient size, and/or use of iterative reconstruction technique. FINDINGS: LOWER THORAX: Unremarkable. LIVER: Unremarkable. No gross lesion or ductal dilatation. GALLBLADDER AND BILE DUCTS: Unremarkable. PANCREAS: Unremarkable. No gross lesion or ductal dilatation. SPLEEN: Unremarkable. ADRENALS: Unremarkable. No mass. KIDNEYS AND URETERS: Unremarkable. No hydronephrosis. No solid mass. VASCULATURE: Unremarkable. No aortic aneurysm. No atherosclerotic calcification or mural plaque present. BOWEL: Constipation without fecal impaction or obstruction. APPENDIX: No abnormalities to suggest acute appendicitis. No right lower quadrant inflammatory processes identified. PERITONEUM: Unremarkable. No free fluid. No free air. LYMPH NODES: Unremarkable. No enlarged lymph nodes. BLADDER: Unremarkable. REPRODUCTIVE: Unremarkable. BONES: No acute fracture. OTHER FINDINGS: Resolution of previously identified perirectal abscess. At the site of the previously described process is a small locule of air and fluid measuring 1.8 x 3.1 cm. No additional perineal abnormalities. Unremarkable anal rectal region. IMPRESSION: Resolution of previously identified perineal/perirectal abscess. The residua of this is a small collection containing air and fluid 1.8 x 3.1 cm.
== END 2018-06-19 08:44 | disposition home or self-care (01) ==
LOC: H.ER 23:15
DX: L03.315 Cellulitis of perineum (principal); K60.3 Anal fistula; D64.9 Anemia, unspecified
CPT/HCPCS: 74177; 80053; 85025; 87040; 96365; 99283; Q9966; Q9967

== ENCOUNTER 2018-09-18 08:12 | Emergency (ER) | payer MEDICAID ==
[2018-09-18 08:18] VITALS: RESP 18; TEMP 97
[2018-09-18 08:19] VITALS: BMI 21.6
--- NOTE | 2018-09-18 08:42 | ED PDOC ---
HPI: General Adult Time Seen by Provider: 09/18/18 08:18 Chief Complaint (Nursing): Wound Check Chief Complaint (Provider): Rectal pain History Per: Patient History/Exam Limitations: no limitations Onset/Duration Of Symptoms: Days Additional History Per: Patient Additional Complaint(s): 43yo male with history of perirectal abscess, comes to ER reporting pain. Patient states he had a surgery on 04/15 and was due for a follow up surgery, which he never complete. Patient now reports pain and swelling along the left perirectal area; he reports pain with sitting and minimal pain with bowel movements. Patient denies any fever, chills, blood in stool. No additional compl aints. PMD: Dk Boyle Past Medical History Reviewed: Historical Data, Nursing Documentation, Vital Signs Vital Signs: Last Vital Signs Temp 97 F L 09/18/18 08:17 Pulse 52 L 09/18/18 08:17 Resp 18 09/18/18 08:17 BP 111/69 09/18/18 08:17 Pulse Ox 99 09/18/18 08:17 - Medical History PMH: Anemia Denies: HIV - Surgical History Other surgeries: surgery due to perirectal abscess - Family History Family History: States: No Known Family Hx - Social History Current smoker - smoking cessation education provided: No Alcohol: None Drugs: Denies - Immunization History Hx Tetanus Toxoid Vaccination: No Hx Influenza Vaccination: No Hx Pneumococcal Vaccination: No - Home Medications Home Medications: Ambulatory Orders Medication Instructions Recorded Ciprofloxacin HCl [Cipro] 500 mg PO BID #20 tab 06/19/18 Cephalexin [cephalexin] 500 mg PO TID #21 cap 09/18/18 RX: Ibuprofen [Motrin Tab] 600 mg PO Q6 PRN #15 tab 09/18/18 RX: traMADol [Ultram] 50 mg PO TID PRN #12 tab 09/18/18 - Allergies Allergies/Adverse Reactions: Allergies Allergy/AdvReac Type Severity Reaction Status Date / Time No Known Allergies Allergy Verified 06/05/18 19:50 Review of Systems ROS Statement: Except As Marked, All Systems Reviewed And Found Negative Constitutional: Negative for: Fever Gastrointestinal: Positive for: Rectal Pain. Negative for: Hematochezia Physical Exam - Reviewed Nursing Documentation Reviewed: Yes Vital Signs Reviewed: Yes - Physical Exam Appears: Positive for: Non-toxic Head Exam: Positive for: NORMAL INSPECTION Skin: Positive for: Normal Color Eye Exam: Positive for: Normal appearance Neck: Positive for: Supple Cardiovascular/Chest: Positive for: Regular Rate, Rhythm. Negative for: Tachycardia Respiratory: Positive for: Normal Breath Sounds. Negative for: Wheezing Gastrointestinal/Abdominal: Positive for: Soft. Negative for: Tenderness Rectal: Positive for: Other (2 cm area of fluctuance on left perirectal border) Extremity: Positive for: Normal ROM Neurologic/Psych: Positive for: Alert, Oriented. Negative for: Motor/Sensory Deficits - Laboratory Results Result Diagrams: 09/18/18 09:35 09/18/18 09:35 - ECG O2 Sat by Pulse Oximetry: 99 (RA) Pulse Ox Interpretation: Normal Medical Decision Making Medical Decision Makinyo male with rectal pain; likely recurrence of perirectal abscess 0839 Case discussed with group president, who will come evaluate patient in ER. Labs, urinalysis ordered. 0929 Patient seen and evaluated by group president, recommends CT for further visualization. 1119 CT Abdomen/Pelvis FINDINGS: Evaluation of the left perirectal space is remarkable for 3-4 small subcutaneous gas collections with thin perry associated and no air-fluid level or prominent enhancement. These small pockets of gas within the subcutaneous fat of the medial left natasha buttocks approach the left perirectal space from below and measure an aggregate of 1.6 x 1.3 x 4.4 cm (transverse by anteroposterior by superoinferior dimensions). The most inferior and medial these multiple gas collections appears to extend to the dermis and is therefore suggestive of a sinus tract. Further clinical correlation is advised. No air-fluid level is appreciated and the extent of potential abscess is not present as previously shown in initial prior CT from 04/24/2018 which demonstrated multiple loculated fluid collections. BLADDER: Unremarkable. No mass. REPRODUCTIVE ORGANS: Unremarkable. VISUALIZED BOWEL: The rectum is collapse with evaluation the wall difficult. Irregularity of the mural thickness is difficult to exclude at the mid inferior rectum. PERITONEUM: Unremarkable, as visualized. No free fluid. No free air. LYMPH NODES: Unremarkable. No enlarged lymph nodes. VASCULATURE: No aortic atherosclerotic calcification or mural plaque present. BONES: No fracture or focal lesion. OTHER FINDINGS: None. IMPRESSION: A definite abscess is not clearly identified however multiple small gas collections beginning at the left perirectal space and extending inferiorly at the medial left buttock buttocks along the gluteal full border are identified with the most inferior abutting the dermis and likely reflecting a sinus tract. No definitive cellulitis appreciated. Further clinical correlation is advised. Limited evaluation of the mid to inferior rectum due to collapse with irregular mural thickening not excluded. Patient given IV Rocephin. 1430 Plan for incision and drainage discussed with patient, who is agreeable. resident services director at bedside and will complete procedure. 1510 Procedure completed by group president under guidance Dr Mercer; patient to be discharged home with prescription for anibiotics and instructed to follow up with PMD and surgeon Dr Mercer next week. Instructed on wound care, has packing in place. Scribe Attestation: Documented by Joelle Blanton acting as a scribe for Jarred Waters DO. Provider Attestation: All medical record entries made by the Scribe were at my direction and personally dictated by me. I have reviewed the chart and agree that the record accurately reflects my personal performance of the history, physical exam, medical decision making, and the department course for this patient. I have also personally directed, reviewed, and agree with the discharge instructions and disposition. Disposition - Clinical Impression Clinical Impression: Perirectal abscess - Patient ED Disposition Is Patient to be Admitted: No - Disposition Referrals: Redd Mercer MD [Staff Provider] - Disposition: Routine/Home Disposition Time: 15:11 Condition: STABLE Additional Instructions: Followup with Dr Mercer in his office next week. Take antibiotics as directed. Use pain medicine as directed and needed. Return to ER for fever, worse pain, or any concern. Do not take Sitz baths until next week, unless packing falls out. Prescriptions: Cephalexin [cephalexin] 500 mg PO TID #21 cap RX: Ibuprofen [Motrin Tab] 600 mg PO Q6 PRN #15 tab PRN Reason: Pain, Moderate (4-7) RX: traMADol [Ultram] 50 mg PO TID PRN #12 tab PRN Reason: Pain, Moderate (4-7) Instructions: Anal Abscess and Fistula (DC) Forms: [facility] ([place]anese)
[2018-09-18] MEDS ORDERED: Sodium Chloride 0.9% 50 ML IV ONE (09:51)
[2018-09-18] MEDS ORDERED: Iohexol 300 100 ML IJ ONE (09:51)
--- NOTE | 2018-09-18 09:53 | CP.PCM.CON ---
History of Present Illness - History of Present Illness History of Present Illness: Surgery Consult Note- Dr. Mercer Reason for consult: recurrent Laverne-anal & Laverne-rectal abscess 43M pmhx significant for hemorrhoids, recurrent laverne-rectal abscess s/p I&D on 03/2018 presents to [facility] ED w/ worsening sharp laverne-rectal pain over the last 3 days. Patient states just finished course of bactrim which moderately improved s ymptoms, however continued to worsen. Denies purulent drainage from the area. Admits to bright red blood in toilet bowl during bowel movements. Denies nausea, vomiting, fevers, chills, changes in urinary habits 12 pt ROS conducted, negative otherwise stated above PMH: Stated above PSH: I&D of laverne-rectal abscess (03/2018) ALL: NKDA SocialHx: social tobacco use smoking, denies etoh, recreational drug use FH: non-contributory PMD: Dr. Boyle Review of Systems - Review of Systems All systems: reviewed and no additional remarkable complaints except - Constitutional Constitutional: As Per HPI Past Patient History - Past Medical History & Family History Past Medical History?: No - Past Social History Alcohol: None Drugs: Denies - CARDIAC Hx Cardiac Disorders: No - HEMATOLOGICAL/ONCOLOGICAL Hx Anemia: Yes Hx Human Immunodeficiency Virus (HIV): No - MUSCULOSKELETAL/RHEUMATOLOGICAL Hx Falls: No - GASTROINTESTINAL Hx Constipation: Yes Other/Comment: perirectal abscess - PSYCHIATRIC Hx Substance Use: No - SURGICAL HISTORY Hx Surgeries: Yes Hx Orthopedic Surgery: Yes - ANESTHESIA Hx Anesthesia: Yes Hx Anesthesia Reactions: No Hx Malignant Hyperthermia: No Meds Home Medications: Home Medication List Medication Instructions Recorded Confirmed Type Cephalexin [cephalexin] 500 mg PO TID #21 cap 09/18/18 Rx Ibuprofen [Motrin Tab] 600 mg PO Q6 PRN #15 tab 09/18/18 Rx traMADol [Ultram] 50 mg PO TID PRN #12 tab 09/18/18 Rx Allergies/Adverse Reactions: Allergies Allergy/AdvReac Type Severity Reaction Status Date / Time No Known Allergies Allergy Verified 06/05/18 19:50 Physical Exam - Constitutional Appears: Non-toxic, No Acute Distress - Head Exam Head Exam: ATRAUMATIC - Eye Exam Eye Exam: EOMI. absent: Scleral icterus - ENT Exam ENT Exam: Mucous Membranes Moist - Respiratory Exam Respiratory Exam: NORMAL BREATHING PATTERN. absent: Accessory Muscle Use, Respiratory Distress - Cardiovascular Exam Cardiovascular Exam: REGULAR RHYTHM. absent: Bradycardia, Tachycardia - GI/Abdominal Exam GI & Abdominal Exam: Soft. absent: Distended, Firm, Guarding, Hernia, Rigid, Tenderness - Rectal Exam Rectal Exam: absent: Hemorrhoids, Fecal Impaction Additional comments: left lateral laverne-anal fluctuance RYAN; palpable fullness left lateral extended approx 4cm above the sphincter, and 1.5cm circumfrentially. Good tone, no patricia blood - Extremities Exam Extremities exam: Negative for: calf tenderness - Neurological Exam Neurological exam: Alert, Oriented x3 - Psychiatric Exam Psychiatric exam: Normal Affect - Skin Skin Exam: Intact, Normal Color Results - Vital Signs Recent Vital Signs: Last Vital Signs Temp 97 F L 09/18/18 08:17 Pulse 52 L 09/18/18 08:17 Resp 18 09/18/18 08:17 BP 111/69 09/18/18 08:17 Pulse Ox 99 09/18/18 09:29 - Labs Result Diagrams: 09/18/18 09:35 09/18/18 09:35 Assessment & Plan - Assessment and Plan (Free Text) Assessment: 43M w/ hx of laverne-rectal abscess presents w/ recurrent laverne-rectal abscess after failing medical treatment Plan: - IVAbx - will perform bedside ID - D/C home w/ Abx Cipro and follow up as an outpatient for elective sphincterotomy - discussed w/ Dr. Mercer Surgical attending PGY2
[2018-09-18 10:15] LABS: BASO # 0.1 K/uL (0.0-0.2); BASO % 1.2 % (0.0-2.0); EOS # 0.4 K/uL (0.0-0.7); EOS % 6.6 % (0.0-4.0); HEMOGLOBIN 12.2 g/dL (12.0-18.0); LYMPH # 2.2 K/uL (1.0-4.3); LYMPH % 38.8 % (20.0-40.0); MEAN CELL VOLUME 80.4 fl (80.0-94.0); MEAN CORPUSCULAR HEMOGLOBIN 26.1 pg (27.0-31.0); MEAN CORPUSCULAR HGB CONC 32.5 g/dL (33.0-37.0); MEAN PLATELET VOLUME 7.9 fl (7.2-11.7); MONO # 0.8 K/uL (0.0-0.8); MONO % 13.6 % (0.0-10.0); NEUT # 2.3 K/uL (1.8-7.0); NEUT % 39.8 % (50.0-75.0); NRBC % 0.2 % (0.0-0.0); RBC 4.65 Mil/uL (4.40-5.90); RED CELL DISTRIBUTION WIDTH 16.7 % (11.5-14.5); WHITE BLOOD COUNT 5.8 K/uL (4.8-10.8)
[2018-09-18 10:26] LABS: ALB/GLOB RATIO 1.2 (1.0-2.1); ALBUMIN 4.3 g/dL (3.5-5.0); ALT/SGPT 58 U/L (21-72); AST/SGOT 38 U/L (17-59); BLOOD UREA NITROGEN 14 mg/dl (9-20); CALCIUM 8.9 mg/dL (8.4-10.2); GFR NON-AFRICAN AMERICAN > 60
--- NOTE | 2018-09-18 11:17 | CT ---
Date of service: 09/18/2018 PROCEDURE: CT Pelvis with contrast HISTORY: perirectal abscess COMPARISON: Abdomen and pelvis CT with contrast 06/19/2018. TECHNIQUE: Contiguous axial images of the pelvis with contrast. Coronal and sagittal reformats generated. Contrast dose: Omnipaque 300, 95 cc Radiation dose: Total exam DLP = 327.54 mGy-cm. This CT exam was performed using one or more of the following dose reduction techniques: Automated exposure control, adjustment of the mA and/or kV according to patient size, and/or use of iterative reconstruction technique. FINDINGS: Evaluation of the left perirectal space is remarkable for 3-4 small subcutaneous gas collections with thin perry associated and no air-fluid level or prominent enhancement. These small pockets of gas within the subcutaneous fat of the medial left natasha buttocks approach the left perirectal space from below and measure an aggregate of 1.6 x 1.3 x 4.4 cm (transverse by anteroposterior by superoinferior dimensions). The most inferior and medial these multiple gas collections appears to extend to the dermis and is therefore suggestive of a sinus tract. Further clinical correlation is advised. No air-fluid level is appreciated and the extent of potential abscess is not present as previously shown in initial prior CT from 04/24/2018 which demonstrated multiple loculated fluid collections. BLADDER: Unremarkable. No mass. REPRODUCTIVE ORGANS: Unremarkable. VISUALIZED BOWEL: The rectum is collapse with evaluation the wall difficult. Irregularity of the mural thickness is difficult to exclude at the mid inferior rectum. PERITONEUM: Unremarkable, as visualized. No free fluid. No free air. LYMPH NODES: Unremarkable. No enlarged lymph nodes. VASCULATURE: No aortic atherosclerotic calcification or mural plaque present. BONES: No fracture or focal lesion. OTHER FINDINGS: None. IMPRESSION: A definite abscess is not clearly identified however multiple small gas collections beginning at the left perirectal space and extending inferiorly at the medial left buttock buttocks along the gluteal full border are identified with the most inferior abutting the dermis and likely reflecting a sinus tract. No definitive cellulitis appreciated. Further clinical correlation is advised. Limited evaluation of the mid to inferior rectum due to collapse with irregular mural thickening not excluded.
[2018-09-18] MEDS ORDERED: Lidocaine 1% Inj (20ml) IJ ONE (11:33)
[2018-09-18] MEDS ORDERED: Bupivacaine 0.25% Inj(30mL) IJ ONE (11:33)
[2018-09-18] MEDS ORDERED: cefTRIAXone (Rocephin) 1 gm Inj ONE (11:49)
[2018-09-18] MEDS ORDERED: Lidocaine 2% Inj (20ml) ONE (11:50)
[2018-09-18] MEDS ORDERED: Bupivacaine HCl 0.25% PF (30 ml) Inj ONE (11:50)
[2018-09-18] MEDS ORDERED: Povidone Iodine Topical 10% Sol ONE (12:03)
--- NOTE | 2018-09-18 15:39 | PCM.PROC ---
- Incision & Drainage Of Abscess Anesthesia: Lidocaine 1%, Bupivicaine 0.25% Used During Procedure: Continuous Pulse Oximetry Prep Used: Sterile Water, Betadine Procedure: Incised W/Scalpel Blade#: (10), Probed To Break Up Loculations, Packed W/Gauze, Cultures Obtained And Sent To Lab Addendum Addendum: 09/18/18 15:30 Procedure performed: incision and drainage of perirectal abscess Procedure performed by: Ana Brown, PGY2; Assisted by Dustin Limon, PGY1 Pre-op diagnosis: perirectal abscess, perirectal sinus Operative findings: area of skin breakdown with small amount of seropurulent fluid drainage approximately in the 9 o'clock position on the left side, approximately 3cm from the rectum. Subcutaneous sinus tract extending cephalad and deep approximately 4cm long Post operative diagnosis: same Written consent was obtained and witnessed by nursing after all the risks, benefits, and alternative options of the procedure were explained. Time out was performed with nurse. Patient was positioned supine, prepped and draped sterilely with betadine. 15cc's of 1/2 0.25% bupivicaine and 1/2 1% lidocaine were injected in locally. A #10 blade was then used to make a cruciate incision over the area of skin breakdown and drainage and all loculations and tracts were explored with a clamp. Wound was packed with betadine soaked packing gauze and covered with a 4x4 dressing. Adequate hemostasis was obtained by the end of the case with mechanical pressure. Patient tolerated the procedure well with no complications. Anesthesia: local Estimated Blood loss: 5cc's Time of procedure: 1400 Date: 09/18/18 09/18/18 15:41
[2018-09-18 15:55] VITALS: BP 115/78; PULSE 62
[2018-09-19 16:01] VITALS: O2SAT 99
== END 2018-09-18 15:58 | disposition home or self-care (01) ==
LOC: H.ER 08:12
DX: K61.1 Rectal abscess (principal); D64.9 Anemia, unspecified; K59.00 Constipation, unspecified
CPT/HCPCS: 72193; 80053; 85025; 87070; 96374; 99283; J0696; Q9967